=== PATIENT | male | born 1970 | race Caucasian/White ===

== ENCOUNTER 2017-03-16 06:20 | Day surgery (SDC) | payer BC ==
[~2017-03-16 06:20] MED LIST: Buffered Lidocaine 0.9% SYRIN* 5 ML/SYR SYRINGE INTRADERM ONE
[2017-03-16] MEDS ORDERED: Buffered Lidocaine 0.9% SYRIN* 5 ML/SYR SYRINGE ONE (06:39)
[2017-03-16] MEDS ORDERED: ceFAZolin 2 GM PREMIX (*) 2 GM/50 ML BAG IVPB ONE (06:39)
[2017-03-16] MEDS ORDERED: Bupivacaine 0.25% SDV* 30 ML ONE (06:59)
[2017-03-16] MEDS ORDERED: fentaNYL* 50 MCG/ML 2 ML VIAL (100 MCG VIAL) ONE (07:35)
[2017-03-16] MEDS ORDERED: Midazolam* 1 MG/ML 2 ML VIAL (2 MG) ONE (07:36)
[2017-03-16] MEDS ORDERED: Ondansetron INJ* 2 MG/ML VIAL ONE (07:57)
[2017-03-16] MEDS ORDERED: DiMENhydriNATE IV* 50 MG/ML VIAL ONE (07:57)
[2017-03-16] MEDS ORDERED: Propofol* 10 MG/ML 20 ML BTL IV PUSH ONE (07:57)
[2017-03-16] MEDS ORDERED: Ketorolac INJ* 30 MG/ML 1 ML VIAL ONE (07:57)
[2017-03-16] MEDS ORDERED: Lidocaine 2% PF * 5 ML VIAL ONE (07:57)
[2017-03-16] MEDS ORDERED: Dexamethasone IV* 4 MG/ML 1 ML (4 MG) ONE (07:57)
[2017-03-16] MEDS ORDERED: Acetaminophen TAB* 325 MG PO PRN (08:26)
[2017-03-16] MEDS ORDERED: Naloxone* 0.4 MG/ML 1 ML VIAL IV PRN (08:26)
[2017-03-16] MEDS ORDERED: DiMENhydriNATE IV* 50 MG/ML VIAL IV PUSH PRN (08:26)
[2017-03-16] MEDS ORDERED: oxyCODONE TAB* 5 MG TAB ONE (09:25)
[2017-03-16] MEDS ORDERED: Acetaminophen TAB* 325 MG ONE (09:25)
[2017-03-16] MEDS: oxyCODONE TAB* 5 MG TAB PO PRN ×2 (09:26→09:27)
[2017-03-16 10:12] VITALS: BP 135/81
--- NOTE | 2017-03-17 09:59 | OP ---
DATE OF OPERATION: 03/16/17 - [facility] DATE OF : 66 SURGEON: Leoncio Lerma MD HAND PLEATER: BHASKAR Lewis. An claims assistant was needed for the entirety of the procedure to aide in positioning of the arm and retraction. ANESTHESIOLOGIST: Dr. Allred. ANESTHESIA: General. 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 OPERATIVE PROCEDURE: Left ulnar nerve decompression at the elbow with anterior subcutaneous transposition. INDICATIONS: Jose has had progressive disease. I previously did a carpal tunnel of the radial side of the hand and is doing very well, but he started to have quite a bit of numbness and tingling in the ulnar 2 digits. I talked with him about risks and benefits of the expected procedure. He had wanted to proceed. ESTIMATED BLOOD LOSS: 5 mL. COMPLICATIONS: None. FINDINGS: As expected, there was ulnar nerve instability after the decompression. DESCRIPTION OF PROCEDURE: Jose was seen in the preoperative holding area. The correct side, site, and procedure were identified. We came back to the operating room. The arm was prepped and draped in the usual fashion. A time -out was performed. I began by making a curvilinear incision centered over the center of the Lennon 's ligament and extending proximally and distally in line with the ulnar nerve. Dissection was carried down, the medial antebrachial cutaneous nerve was identified and protected throughout the entirety of the case. I began the release just proximal to Lennon's ligament and released the fascia overlying the nerve. I placed an appendiceal retractor and under direct visualization released the fascia well past the medial intermuscular septum. I then came distally and released Lennon's ligament and then I released the superficial FCU fascia. I split the two edges of the FCU and released the subfascial layer throughout the entirety of its course through the FCU. At this point, there was no compression on the nerve. The muscular branches to the 2 heads of the FCU were identified. I went ahead and flexed and extended the elbow and the nerve frankly subluxated over the medial epicondyle. At this point, I placed a vessel loop around the nerve. I used this to gently retract the nerve as I released the soft tissue around the nerve for planning for a transposition. I did a little bit of internal dissection to cannulate little bit more length on the motor branch to the ulnar head of the FCU. Once I had adequate mobility of the nerve, I went ahead and excised the entirety of the medial intermuscular septum distally and then released the leading edge of the FCU fascia. I went ahead and live out double opposing flaps on the medial flexor pronator fascia. These were then raised in a step cut type fashion. The septa between the muscles were fully excised. Once I had a nice soft muscular bed, I went ahead and transposed the nerve. I then brought the two ends of the fascial flaps end to end and secured them together with multiple 4-0 Ethibond figure-of- eight sutures. This helped the nerve nicely transpose anterior to the medial epicondyle. I flexed and extended the arm multiple times, there was absolutely no kinking or compression of the nerve. It stayed in the transposed position. Hemostasis was obtained with the Bovie cautery. Everything was looking really good, so we irrigated out the wound. Subcutaneous tissue was reapproximated with 3-0 Vicryl. Skin was closed with 4-0 Monocryl and Steri-Strips and the wound was dressed with 4 x 4s, ABD, a sterile Webril and then a long arm splint with lateral strap was applied. Tourniquet was deflated, hand pinked up immediately, he was woken up and taken to the recovery room in stable condition. [id number]/CPS #: [id number] MTDKristyn
== END 2017-03-16 10:25 | disposition home or self-care (01) ==
LOC: OR 06:20
PROVIDERS: ATTEND Orthopaedic Surgery Hand Surgery
DX: G56.22 Lesion of ulnar nerve, left upper limb (principal); E11.9 Type 2 diabetes mellitus without complications; Z79.84 Long term (current) use of oral hypoglycemic drugs; I10 Essential (primary) hypertension; E78.5 Hyperlipidemia, unspecified; R01.1 Cardiac murmur, unspecified; E66.9 Obesity, unspecified; G47.33 Obstructive sleep apnea (adult) (pediatric); R42 Dizziness and giddiness
CPT/HCPCS: A9270-GY; J0690; J1100; J1240; J1885; J2250; J2405; J2704; J3010

== ENCOUNTER 2017-07-13 10:51 | Day surgery (SDC) | payer BC ==
[2017-07-13] MEDS ORDERED: ceFAZolin 2 GM PREMIX (*) 2 GM/50 ML BAG IVPB ONE (11:04)
[2017-07-13] MEDS ORDERED: Buffered Lidocaine 0.9% SYRIN* 5 ML/SYR SYRINGE ONE (11:04)
[2017-07-13] MEDS ORDERED: ceFAZolin 1 GM in Dextrose (*) 1 GM/50 ML BAG IVPB ONE (11:46)
[2017-07-13] MEDS ORDERED: Insulin LISPRO* 1 UNITS UNIT SUBCUT ONE (11:58)
[2017-07-13] MEDS ORDERED: fentaNYL* 50 MCG/ML 2 ML VIAL (100 MCG VIAL) ONE ×3 (13:04→16:06)
[2017-07-13] MEDS ORDERED: Metoclopramide IV* 5 MG/ML 2 ML VIAL ONE (13:05)
[2017-07-13] MEDS ORDERED: Propofol* 10 MG/ML 20 ML BTL IV PUSH ONE ×2 (13:05→13:20)
[2017-07-13] MEDS ORDERED: Bupivacaine 0.25% SDV* 30 ML ONE ×2 (13:09→14:11)
[2017-07-13] MEDS ORDERED: Lidocaine 2% PF * 5 ML VIAL ONE (13:20)
[2017-07-13] MEDS ORDERED: Ondansetron INJ* 2 MG/ML VIAL IV PRN (14:13)
[2017-07-13] MEDS ORDERED: DiMENhydriNATE IV* 50 MG/ML VIAL IV PUSH PRN (14:13)
[2017-07-13] MEDS ORDERED: HYDROcodone/ACETAMIN 5-325 MG* 1 TAB PO PRN (14:13)
[2017-07-13] MEDS ORDERED: Naloxone* 0.4 MG/ML 1 ML VIAL IV PRN (14:13)
[2017-07-13] MEDS ORDERED: Ketorolac INJ* 30 MG/ML 1 ML VIAL IV PRN (14:13)
[2017-07-13] MEDS: fentaNYL* 50 MCG/ML 2 ML VIAL (100 MCG VIAL) IV PRN ×2 (16:06→16:19)
[2017-07-13] MEDS ORDERED: HYDROcodone/ACETAMIN 5-325 MG* 1 TAB ONE (16:43)
[2017-07-13 17:11] VITALS: BP 121/73
--- NOTE | 2017-07-13 20:27 | RAD ---
INDICATION: LEFT wrist scaphoid excision and 4 corner fusion. COMPARISON: May 15, 2017 radiographs. TECHNIQUE: 51 seconds fluoroscopy. FINDINGS: Spot images document resection of the scaphoid and placement of interference screws between the triquetrum, hamate, and capitate and between the lunate and capitate. IMPRESSION: Procedural fluoroscopy. CPT II Codes: G9500
--- NOTE | 2017-07-14 13:53 | OP ---
DATE OF OPERATION: 07/13/17 - [facility] DATE OF : 66 SURGEON: Leoncio Lerma MD CAR ATTENDANT: BHASKAR Lewis ANESTHESIOLOGIST: Dr. Rosas. ANESTHESIA: General. 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 OPERATIVE PROCEDURES: 1. Left wrist scaphoid excision and 4 corner fusion. 2. Left posterior interosseous nerve neurectomy. 3. Left radial styloidectomy. INDICATIONS: Jose is 46 years old. He is a labor. He has had progressive left wrist pain over the last few years. X-rays revealed a severe fixed deformity in the intercarpal alignment. The scaphoid facet was starting to wear, there was a large ossicle near the radial styloid. The pain is becoming severe with any use. It is waking him up at night. I talked to him about risks and benefits. Additionally, he had associated STT changes. He wanted to proceed with surgery. He understands the risks of nonunion and infection and persistent pain. ESTIMATED BLOOD LOSS: 10 mL. COMPLICATIONS: None. FINDINGS: Scaphoid facet full thickness cartilage loss. DESCRIPTION OF PROCEDURE: Jose was seen in the preoperative holding area. The correct site, side, and procedure were identified. We came back to the operating room, where the anesthesia was induced. The arm was prepped and draped in usual fashion. A time-out was performed. I began by exsanguinating the arm. The Esmarch and the tourniquet was inflated to 250 mmHg. I made a longitudinal incision over the dorsum of the wrist. Dissection was carried down. A full-thickness flap was raised above the extensor retinaculum. I then opened the retinaculum over the third dorsal compartment. The EPL tendon was transposed. I then released the retinaculum subperiosteally, radially, and ulnarly to expose the dorsum of the wrist. The EDM tendon was left transposed as well. Once the retinaculum was released and the extensor tendons were retracted radially and ulnarly, I went ahead and made a distally based U capsular flap. The capsule was raised off of the dorsum of the carpus exposing the dorsum of the carpi. I then released the soft tissue around the scaphoid using a towel clip to control the scaphoid. This was excised en bloc. There was a large bony ossicle adjacent to the radial styloid. This was excised. At this point, I could see the scaphoid facet. There was full thickness cartilage loss in the scaphoid facet. The radial and lunate joint looked preserved. At this point, I took my lit and prepared the bony edges until a bleeding cancellous bone at all the proposed fusion surfaces. I did go ahead and prepared the lunotriquetral joint and the capital hamate joint. I then corrected the DISI deformity and I placed a provisional 0.62 K-wire holding the lunate in the correct position. This was confirmed on fluoroscopy. I then placed a guidewire for the mini Acutrak screw. This was measured, drilled, and then a 30-mm Acutrak screw was placed in antegrade fashion across the lunocapitate fusion surface. Prior to placing the screw, I had packed bone graft taken from the scaphoid into the fusion surface. I then packed the remainder of my bone graft into the interspace between the remaining carpal bones. I then placed a mini Acutrak guidewire across the triquetrum into the hamate and then into the distal aspect of the capitate. My first guidewire was a little too distal and so I came a little more proximal with another guidewire and placed that. I liked to position on fluoroscopy, so I went ahead and overdrilled it and then placed another 30-mm mini Acutrak screw coursing across the triquetrum, hamate and into the capitate. At this point, I examined all my fusion surfaces. I took up the remainder of Saurav's tubercle and use this as bone graft and I packed this around all the fusion surfaces. At this point, I also took out the distal 2 cm of the posterior interosseous nerve. This was handed off as a specimen. I used a sagittal saw to perform a radial styloidectomy to prevent any impingement. I then used bone wax to obtain hemostasis at the site of the radial styloidectomy and at the excision of Saurav's tubercle. At this point, everything was looking good. After I shifted the corpus over with a 4 corner fusion, I did not think I needed to do anything to the end of the ulna, so I left that alone. The wound was irrigated out. The capsular flap was closed with 4-0 Ethibond suture. The retinaculum was closed with 4-0 Ethibond suture leaving the EPL and EDM tendons transposed. The skin was closed with 4-0 nylon suture. Wounds were infiltrated with 0.25% plain Marcaine. The wound was dressed with Xeroform, 4x4, sterile Webril and a cockup wrist splint was applied. Tourniquet was deflated. The hand pinked up immediately. Total tourniquet time is 126 minutes. The patient was then woken up and taken to the recovery room in stable condition. [id number]/CPS #: [id number] [email or web address]
== END 2017-07-13 17:47 | disposition home or self-care (01) ==
LOC: SDS 10:51
PROVIDERS: ATTEND Orthopaedic Surgery Hand Surgery
DX: M24.832 Other specific joint derangements of left wrist, not elsewhere classified (principal); E11.9 Type 2 diabetes mellitus without complications; Z79.84 Long term (current) use of oral hypoglycemic drugs; I10 Essential (primary) hypertension; E78.5 Hyperlipidemia, unspecified; K21.9 Gastro-esophageal reflux disease without esophagitis; M19.90 Unspecified osteoarthritis, unspecified site; R01.1 Cardiac murmur, unspecified; R94.31 Abnormal electrocardiogram [ECG] [EKG]
CPT/HCPCS: 76001; 88304; 88305; 88311; C1713; C1776; J0690; J2704; J2765; J3010

== ENCOUNTER 2021-04-25 19:25 | Observation (INO) ==
[2021-04-25] MEDS ORDERED: NS 0.9% 1000 ml BAG 1,000 ML IV ONE (19:33)
[2021-04-25 19:53] LABS: ABS Eosinophils 0.1 10^3/ul (0-0.6); ABS Lymphocytes 2.9 10^3/ul (1.0-4.8); ABS Monocytes 0.5 10^3/ul (0-0.8); ABS Neutrophils 6.1 10^3/ul (1.5-7.7); Hematocrit 52 % (42-52); Hemoglobin 17.7 g/dL (14.0-18.0); Lymphocyte % 30.1 %; Mean Corpuscular HGB Conc 34 g/dL (31-36); Mean Corpuscular Hemoglobin 32 pg (27-31); Mean Corpuscular Volume 93 fL (80-94); Mean Platelet Volume 9.9 fL (7.4-10.4); Platelet Count 250 10^3/uL (150-450); Red Blood Count 5.58 10^6 /uL (4.18-5.48); Red Cell Distribution Width 13 % (10-15); White Blood Count 9.5 10^3/uL (3.5-10.8)
[2021-04-25] MEDS ORDERED: Thiamine 100 MG/ML 2 ml VIAL 100 MG, Folic Acid IV 1 MG, Multiple Vitamin IV ADULT 10 M... IV ONE (20:00)
[2021-04-25] MEDS ORDERED: Metoclopramide 5 MG/ML VIAL (10 mg) IV SLOW PU ONE (20:06)
[2021-04-25] MEDS ORDERED: diPHENhydraMINE IV 50 MG/ML 1 ml VIAL (BENADRYL) IV ONE (20:07)
[2021-04-25 20:17] LABS: Activated Partial Thrombo Time 28.5 seconds (26.0-38.0); INR 1.06 (0.86-1.15)
[2021-04-25 20:30] LABS: ALT 61 U/L (7-52); Albumin 4.8 g/dL (3.2-5.2); Alkaline Phosphatase 119 U/L (35-149); Amylase 46 U/L (29-103); Blood Urea Nitrogen 17 mg/dL (6-24); C Reactive Protein < 1.00 mg/L (<8.01); CO2 Carbon Dioxide 23 mmol/L (22-32); Calcium 9.8 mg/dL (8.6-10.3); Chloride 102 mmol/L (101-111); Globulin 2.4 g/dL (2-4); Glucose 392 mg/dL (70-100); LDL Cholesterol Direct 92 mg/dL; Lipase 54 U/L (11.0-82.0); Magnesium 1.8 mg/dL (1.9-2.7); Sodium 136 mmol/L (135-145); Total Protein 7.2 g/dL (6.4-8.9); eGFR CKD-EPI 89.5 (>60)
[2021-04-25 20:39] LABS: Anion Gap 11 mmol/L (2-11)
[2021-04-25] MEDS ORDERED: Iodixanol (CONTRAST) 320 MG/ML 100 ML SDV IV ONE (21:36)
[2021-04-25 23:31] LABS: Potassium Redraw 3.9 mmol/L (3.5-5.0)
[2021-04-26 00:04] LABS: Urine Appearance Clear; Urine Bilirubin Negative (Negative); Urine Blood Negative (Negative); Urine Color Yellow; Urine Glucose 3+(>=500 mg/dL) (Negative); Urine Ketones Negative (Negative); Urine Nitrite Negative (Negative); Urine Protein 2+(100 mg/dL) (Negative); Urine Urobilinogen Negative (Negative)
[2021-04-26 00:15] LABS: Urine Bacteria Absent (Absent); Urine Red Blood Cell Trace(0-2/hpf) (Absent); Urine White Blood Cell Trace(0-5/hpf) (Absent)
[2021-04-26 00:22] LABS: Urine Specific Gravity > 1.060 (1.002-1.030)
[2021-04-26] MEDS ORDERED: fentaNYL 250 mcg/5 ml 50 MCG/ML 5 ml VIAL (250 MCG) ONE (03:21)
[2021-04-26] MEDS ORDERED: Midazolam 2 mg/2 ml VIAL 1 mg/ml 2 ml VIAL (2 mg) ONE (03:21)
[2021-04-26] MEDS ORDERED: Succinylcholine 200 mg VIAL 20 mg/ml 10 ml VIAL (200 mg) ONE (03:21)
[2021-04-26] MEDS ORDERED: Rocuronium 50 mg VIAL 10 mg/ml 5 ml VIAL (50 mg) ONE ×2 (03:21→06:08)
[2021-04-26] MEDS ORDERED: Lidocaine 2% PF 5 ML VIAL ONE (03:21)
[2021-04-26] MEDS ORDERED: Propofol 10 MG/ML 20 ML BTL ONE (03:21)
[2021-04-26] MEDS ORDERED: Buffered Lidocaine 1% SYRIN 1 ml INTRADERM ONE (03:34)
[2021-04-26] MEDS ORDERED: Prochlorperazine 5 mg/ml 2 ml VIAL (10 mg) IV PRN (03:35)
[2021-04-26] MEDS ORDERED: diPHENhydraMINE IV 50 MG/ML 1 ml VIAL (BENADRYL) IV PRN (03:35)
[2021-04-26] MEDS ORDERED: Bupivacaine 0.25% SDV 30 ML ONE (03:35)
[2021-04-26] MEDS ORDERED: HYDROmorphone 1 MG/1 ML SYRINGE IV PRN (03:35)
[2021-04-26] MEDS ORDERED: Naloxone 0.4 mg VIAL 0.4 mg/ml 1 ml VIAL IV PRN (03:35)
[2021-04-26] MEDS ORDERED: ceFAZolin 2 GM PREMIX 2 GM/50 ML BAG ONE (03:55)
[2021-04-26] MEDS ORDERED: Lactated Ringers 1000 ml BAG 1,000 ML IV SCH ×2 (04:00→08:00)
[2021-04-26] MEDS ORDERED: Scopolamine 1 mg/72hr PATCH ONE (04:02)
[2021-04-26] MEDS ORDERED: Scopolamine 1 mg/72hr PATCH TRANSDERM ONE (04:04)
[2021-04-26] MEDS ORDERED: Ondansetron 4 mg VIAL 2 MG/ML 2 ml VIAL ONE (05:10)
[2021-04-26] MEDS ORDERED: Dexamethasone IV 4 MG/ML VIAL 1 ml VIAL ONE (05:10)
[2021-04-26] MEDS ORDERED: EPHEDrine (Pressors) 50 MG/ML VIAL ONE (05:18)
[2021-04-26] MEDS ORDERED: HYDROmorphone 0.5 MG/0.5 ML SYRINGE ONE (05:24)
[2021-04-26] MEDS ORDERED: Acetaminophen IV 1 GM/100ML 100 ML IV ONE ×2 (07:20→07:31)
[2021-04-26] MEDS ORDERED: Ondansetron 4 mg VIAL 2 MG/ML 2 ml VIAL IV PRN (07:29)
[2021-04-26] MEDS ORDERED: HYDROmorphone 0.5 MG/0.5 ML SYRINGE IV SLOW PU PRN (07:37)
[2021-04-26] MEDS: Heparin 5000 UNITS/ML 1 mL VIAL SUBCUT SCH ×2 (14:26→22:47)
[2021-04-27 04:44] LABS: Hematocrit 36 % (42-52); Hemoglobin 12.7 g/dL (14.0-18.0); Mean Corpuscular HGB Conc 36 g/dL (31-36); Mean Corpuscular Hemoglobin 32 pg (27-31); Mean Corpuscular Volume 91 fL (80-94); Mean Platelet Volume 9.5 fL (7.4-10.4); Platelet Count 164 10^3/uL (150-450); Red Blood Count 3.93 10^6 /uL (4.18-5.48); Red Cell Distribution Width 14 % (10-15); White Blood Count 6.7 10^3/uL (3.5-10.8)
[2021-04-27 05:01] LABS: Calcium 8.9 mg/dL (8.6-10.3); Potassium 3.9 mmol/L (3.5-5.0); eGFR CKD-EPI 110.9 (>60)
[2021-04-27] MEDS: Heparin 5000 UNITS/ML 1 mL VIAL SUBCUT SCH (05:54)
[2021-04-27 07:43] VITALS: BP 117/79
== END 2021-04-27 11:45 | disposition home or self-care (01) ==
LOC: SSU 19:25 → ED 19:25
PROVIDERS: ADMIT Surgery Surgical Critical Care; ATTEND Surgery Surgical Critical Care

== ENCOUNTER 2022-07-25 13:42 | Observation (INO) ==
[2022-07-25] MEDS ORDERED: Ondansetron 4 mg VIAL 2 MG/ML 2 ml VIAL IV ONE ×2 (15:21→19:21)
[2022-07-25] MEDS ORDERED: Morphine 4 MG/ML VIAL (1 ml) IV ONE ×2 (15:41→17:58)
[2022-07-25] MEDS ORDERED: Lactated Ringers 1000 ml BAG 1,000 ML IV ONE (15:42)
[2022-07-25 15:43] LABS: ABS Lymphocytes 0.9 10^3/uL (1.0-4.8); ABS Monocytes 0.6 10^3/uL (0.0-1.1); ABS Nucleated RBC 0.01 10^3/ul; Eosinophil % 0.2 %; Hematocrit 44.3 % (38-53); Hemoglobin 15.3 g/dL (13.2-16.3); Lymphocyte % 8.1 %; Mean Corpuscular Hemoglobin 31.1 pg (27-33); Mean Corpuscular Hgb Conc 34.5 g/dL (31-36); Nucleated Red Blood Cells % 0.1 /100 WBC (0.0-0.4); Platelet Count 210 10^3/uL (150-450); Red Blood Count 4.93 10^6/uL (4.06-5.63); Red Cell Distribution Width 13.4 % (12-17); White Blood Count 10.5 10^3/uL (3.6-10.2)
[2022-07-25 15:59] LABS: ALT 61 U/L (7-52); AST 36 U/L (13-39); Albumin 4.7 g/dL (3.2-5.2); Albumin/Globulin Ratio 1.9 (1-3); Alkaline Phosphatase 119 U/L (35-149); Anion Gap 6 mmol/L (2-16); Blood Urea Nitrogen 13 mg/dL (6-24); CO2 Carbon Dioxide 29 mmol/L (22-32); Calcium 9.9 mg/dL (8.6-10.3); Chloride 102 mmol/L (101-111); Creatinine, Serum 0.74 mg/dL (0.67-1.17); Globulin 2.5 g/dL (2-4); Glucose 173 mg/dL (70-100); Lipase 59 U/L (11.0-82.0); Magnesium 1.8 mg/dL (1.9-2.7); Potassium 4.2 mmol/L (3.5-5.0); Sodium 137 mmol/L (135-145); Total Protein 7.2 g/dL (6.4-8.9); eGFR CKD-EPI 108.3 (>60)
[2022-07-25] MEDS ORDERED: Iodixanol (CONTRAST) 320 MG/ML 100 ML SDV IV ONE (16:13)
[2022-07-25 16:18] LABS: INR 1.1 (0.88-1.18)
[2022-07-25 16:56] LABS: C Reactive Protein < 1.00 mg/L (<8.01)
[2022-07-25 17:47] LABS: Urine Appearance Clear; Urine Bilirubin Negative (Negative); Urine Blood Negative (Negative); Urine Color Yellow; Urine Glucose 1+(50 mg/dL) (Negative); Urine Ketones 1+ (Negative); Urine Nitrite Negative (Negative); Urine Protein Negative (Negative); Urine Specific Gravity 1.029 (1.002-1.030); Urine Urobilinogen Negative (Negative)
[2022-07-25] MEDS ORDERED: NS 0.9% 1000 ml BAG 1,000 ML IV ONE (19:21)
[2022-07-25] MEDS ORDERED: HYDROmorphone 1 MG/1 ML SYRINGE IV SLOW PU PRN (20:33)
[2022-07-25] MEDS ORDERED: Ondansetron 4 mg VIAL 2 MG/ML 2 ml VIAL IV PRN (20:33)
[2022-07-25] MEDS ORDERED: Acetaminophen IV 1 GM/100ML 1,000 MG/100 ML BAG IV PRN (20:36)
[2022-07-26] MEDS: Lactated Ringers 1000 ml BAG 1,000 ML IV SCH ×3 (08:28→16:30)
[2022-07-27] MEDS: Lactated Ringers 1000 ml BAG 1,000 ML IV SCH ×2 (00:36→08:17)
[2022-07-27 09:43] VITALS: BP 124/81
== END 2022-07-27 12:50 | disposition home or self-care (01) ==
LOC: EDHOLD 13:42 → ED 13:42 → MED 07-26 00:15
PROVIDERS: ADMIT Surgery; ATTEND Surgery